=== PATIENT | male | born 1945 | race Caucasian/White ===

== ENCOUNTER 2020-06-21 16:07 | Inpatient (IN) | payer MEDICARE, MEDICAID ==
[~2020-06-21] VITALS: Ht 170.2 cm; Wt 103.6 kg
[~2020-06-21 16:07] MED LIST: ACLI400A3 INH; ALBU8.5H8 INH; AMIT25TA PO; ATRO2DRO3 SL; AZIT500T10 PO; CEFD300C37 PO; FLUT1DIS3 INH; GABA400C PO; GLYB5TAB3 PO; INSU100I28 SQ-INSULIN; INSU100V8 SQ; IPRA3AMP30 NPPB; IPRA4AER INH; LORA-446 PO; METF10002 PO; MORP20CA18 PO; NICO-587 TD; PANT40TA3 PO; PRED10TA PO
--- NOTE | 2020-06-21 16:25 | NUR ---
PT FROM [facility] WITH OXYGEN SATURATION 65 PERCENT ON CONCENTRATOR BUT UP TO 100 PERCENT WHEN SWITCHED TO OTHER OXYGEN SOURCE. PT STATES HE DOES HAVE A COUGH WORSE THAN NORMAL AND SOME CP.
[2020-06-21] MEDS ORDERED: SODIUM CHLORIDE FLUSH 10ML SYR IVF ONE (17:30)
[2020-06-21 18:59] LABS: HCT (SEDRATE) 31.9 % (39.2-51.8)
[2020-06-21 19:04] LABS: CHLORIDE 101 mmol/L (98-107)
[2020-06-21 19:08] LABS: BASOPHILS % (AUTO) 1 % (0-1); EOSINOPHILS % (AUTO) 0 % (1-7); LYMPHOCYTES % (AUTO) 10 % (22-44); MEAN CORPUSCULAR HEMOGLOBIN 26.5 pg (27.5-34.5); MEAN CORPUSCULAR HGB CONC 31.9 g/dL (33.2-36.2); MEAN PLATELET VOLUME 8.2 fL (7.4-10.4); MONOCYTES % (AUTO) 6 % (2-9); NEUTROPHILS % (AUTO) 82 % (42-75); PLATELET COUNT 383 x10^3/uL (130-400); RED BLOOD COUNT 3.74 x10^6/uL (4.38-5.82)
--- NOTE | 2020-06-21 19:11 | NUR ---
REPORT TO JOHN DUMONT
[2020-06-21 19:13] LABS: ALANINE AMINOTRANSFERASE 18 U/L (12-78); ALBUMIN 2.8 g/dL (3.4-5.0); ALKALINE PHOSPHATASE 129 U/L (45-117); ANION GAP 4 mmol/L (5-15); BILIRUBIN,TOTAL 0.4 mg/dL (0.2-1.0); CALCIUM 9.1 mg/dL (8.5-10.1); TOTAL PROTEIN 7.3 g/dL (6.4-8.2)
[2020-06-21 19:33] LABS: MD SCAN
[2020-06-21] MEDS ORDERED: FILTER 0.22 MICRON IV PRN (20:00)
[2020-06-21] MEDS ORDERED: ASPIRIN 81 MG TABLET CHEW PO ONE (20:00)
[2020-06-21] MEDS ORDERED: AMIODARONE 450 MG in DEXTROSE 5% 241 ML IV PRN (20:00)
[2020-06-21] MEDS ORDERED: AMIODARONE 150 MG in DEXTROSE 5% 100 ML IV ONE (20:00)
--- NOTE | 2020-06-21 20:06 | NUR ---
PT TO CT SCAN
[2020-06-21] MEDS ORDERED: ASPIRIN 81 MG TABLET CHEW ONE (20:21)
[2020-06-21] MEDS ORDERED: HEPARIN 25,000 UNITS/250ML PMX 250 ML IV PRN (20:30)
[2020-06-21] MEDS ORDERED: HEPARIN 5,000 UNITS/ML, 1ML IV ONE (20:30)
[2020-06-21] MEDS ORDERED: HEPARIN 5,000 UNITS/ML, 1ML IV PRN (20:30)
[2020-06-21 20:34] LABS: MICROSCOPIC AUTO
[2020-06-21] MEDS ORDERED: HEPARIN 5,000 UNITS/ML, 1ML ONE (21:04)
[2020-06-21] MEDS ORDERED: HEPARIN 25,000 UNITS/250ML PMX 250 ML ONE (21:05)
--- NOTE | 2020-06-21 21:23 | NUR ---
THIS RN AT BEDSIDE FOR HEPARIN VERIFICATION.
[2020-06-21] MEDS ORDERED: NITROGLYCERIN 0.4 MG BOTTLE (25 TABS) SL PRN (21:30)
[2020-06-21] MEDS ORDERED: morphine SULFATE 10 MG/ML, 1ML IV PRN (21:30)
[2020-06-21] MEDS ORDERED: ALBUTEROL HFA 90 MCG/SPRAY INH PRN (21:30)
[2020-06-21] MEDS ORDERED: ACETAMINOPHEN 325 MG TABLET PO PRN (21:30)
[2020-06-21] MEDS ORDERED: LABETALOL 5MG/ML, 20ML IVPush PRN (21:30)
[2020-06-21] MEDS ORDERED: ALBUTEROL-IPRATROPIUM MDI INH INH PRN (21:30)
[2020-06-21] MEDS ORDERED: DOCUSATE 100 MG CAPSULE PO PRN (21:30)
--- NOTE | 2020-06-21 21:34 | NUR ---
PT STARTED ON HEPARIN DRIP, AND AMNIO DRIP. PT STATES FEELING OK, NO ACUTE ISSUES AT THIS TIME. RESP EVEN/UNLABORED, ON ALL MONITORS, HOSPITALIST AT BEDSIDE
--- NOTE | 2020-06-21 22:09 | NUR ---
PT RESTING IN [place], STATES NO NEEDS AT THIS TIME, GIVEN WATER PER REQUEST
[2020-06-21 22:29] LABS: CHOL/HDL RATIO 5.5; LDL/HDL RATIO 3.9 (0.5-3.0)
--- NOTE | 2020-06-21 22:43 | NUR ---
PT RN: CALLED DR STEARNS. PROVIDER WANTS PT ON A NON-COVID FLOOR WITH A MONITOR. TELE OKAYED BY PROVIDER.
--- NOTE | 2020-06-21 22:53 | NUR ---
REPORT GIVEN TO ROSANA DUMONT.
[2020-06-22 00:16] VITALS: BP 122/67
[2020-06-22 03:55] LABS: ANION GAP 2 mmol/L (5-15); BASOPHILS % (AUTO) 1 % (0-1); CALCIUM 8.9 mg/dL (8.5-10.1); CHLORIDE 101 mmol/L (98-107); CREATININE 0.71 mg/dL (0.7-1.3); EOSINOPHILS % (AUTO) 1 % (1-7); LYMPHOCYTES % (AUTO) 14 % (22-44); MEAN CORPUSCULAR HEMOGLOBIN 26.2 pg (27.5-34.5); MEAN CORPUSCULAR HGB CONC 31.3 g/dL (33.2-36.2); MEAN PLATELET VOLUME 8.3 fL (7.4-10.4); MONOCYTES % (AUTO) 8 % (2-9); NEUTROPHILS % (AUTO) 75 % (42-75); PLATELET COUNT 362 x10^3/uL (130-400); RED BLOOD COUNT 3.77 x10^6/uL (4.38-5.82); RED CELL DISTRIBUTION WIDTH 15.9 % (9.4-14.8)
[2020-06-22 04:07] LABS: MD NO
[2020-06-22] MEDS: HEPARIN 5,000 UNITS/ML, 1ML IV PRN (05:14)
[2020-06-22] MEDS ORDERED: ASPIRIN 325 MG TABLET EC PO SCH (06:00)
[2020-06-22] MEDS: INSULIN LISPRO 100 UNITS/ML, PEN SQ-INSULIN SCH ×4 (07:00→20:55)
[2020-06-22 07:12] VITALS: BP 135/80
[2020-06-22] MEDS: AMIODARONE 450 MG in DEXTROSE 5% 241 ML IV PRN ×2 (07:20→21:49)
[2020-06-22] MEDS: SODIUM CHLORIDE FLUSH 10ML SYR IVF SCH ×2 (09:00→20:36)
[2020-06-22] MEDS ORDERED: SODIUM CHLORIDE 0.9% 1,000 ML IV SCH (09:30)
[2020-06-22] MEDS: PANTOPRAZOLE 40MG TABLET PO SCH (09:56)
[2020-06-22] MEDS: AMITRIPTYLINE 25 MG TABLET PO SCH ×2 (09:56→20:35)
[2020-06-22] MEDS: GABAPENTIN 400 MG CAPSULE PO SCH ×4 (09:56→20:42)
[2020-06-22] MEDS ORDERED: FENTANYL PF 100 MCG/2ML ONE (11:57)
[2020-06-22] MEDS ORDERED: LIDOCAINE-MPF 1%, 5ML ONE (11:57)
[2020-06-22] MEDS ORDERED: VERAPAMIL 2.5 MG/ML, 2ML ONE (11:57)
[2020-06-22] MEDS ORDERED: BIVALIRUDIN 250 MG ONE (11:57)
[2020-06-22] MEDS ORDERED: TICAGRELOR 90 MG TABLET ONE (11:57)
[2020-06-22] MEDS ORDERED: MIDAZOLAM 1 MG/ML, 5ML ONE (11:58)
[2020-06-22] MEDS ORDERED: HEPARIN 1,000 UNITS/ML, 10ML ONE (11:58)
[2020-06-22 15:49] VITALS: BP 123/57
[2020-06-22] MEDS: FLUTICASONE/VILANTEROL 200-25MCG/INH INH SCH (17:41)
[2020-06-22] MEDS ORDERED: OMNIPAQUE 350 MG/ML, 100ML BOTTLE ONE (20:00)
[2020-06-22 20:30] VITALS: BP 112/67
[2020-06-22] MEDS: ATORVASTATIN 80 MG TABLET PO SCH ×2 (20:34→20:41)
[2020-06-23] MEDS: HEPARIN 25,000 UNITS/250ML PMX 250 ML IV PRN ×2 (00:21→18:07)
[2020-06-23 01:46] VITALS: BP 109/68
[2020-06-23] MEDS: HEPARIN 5,000 UNITS/ML, 1ML IV PRN ×2 (01:46→10:14)
[2020-06-23 05:55] LABS: BASOPHILS % (AUTO) 1 % (0-1); EOSINOPHILS % (AUTO) 5 % (1-7); LYMPHOCYTES % (AUTO) 15 % (22-44); MEAN CORPUSCULAR HEMOGLOBIN 26.4 pg (27.5-34.5); MEAN CORPUSCULAR HGB CONC 31.6 g/dL (33.2-36.2); MEAN PLATELET VOLUME 8.6 fL (7.4-10.4); MONOCYTES % (AUTO) 8 % (2-9); NEUTROPHILS % (AUTO) 72 % (42-75); PLATELET COUNT 308 x10^3/uL (130-400); RED BLOOD COUNT 3.48 x10^6/uL (4.38-5.82)
[2020-06-23 06:06] LABS: ALBUMIN 2.4 g/dL (3.4-5.0); ANION GAP 5 mmol/L (5-15); CALCIUM 8.4 mg/dL (8.5-10.1); CHLORIDE 102 mmol/L (98-107)
[2020-06-23 06:10] LABS: ALANINE AMINOTRANSFERASE 20 U/L (12-78); ALKALINE PHOSPHATASE 105 U/L (45-117); BILIRUBIN,TOTAL 0.5 mg/dL (0.2-1.0); CREATININE 0.78 mg/dL (0.7-1.3); TOTAL PROTEIN 6.4 g/dL (6.4-8.2)
[2020-06-23 06:14] LABS: MD NO
[2020-06-23 06:41] VITALS: BP 121/70
[2020-06-23] MEDS ORDERED: MAGNESIUM SULFATE 1 GM in SODIUM CHLORIDE 0.9% 50 ML IV ONE (07:30)
[2020-06-23] MEDS: ASPIRIN 81 MG TABLET EC PO SCH (08:49)
[2020-06-23] MEDS: AMITRIPTYLINE 25 MG TABLET PO SCH ×2 (08:49→20:57)
[2020-06-23] MEDS: INSULIN LISPRO 100 UNITS/ML, PEN SQ-INSULIN SCH ×4 (08:49→21:42)
[2020-06-23] MEDS: PANTOPRAZOLE 40MG TABLET PO SCH (08:49)
[2020-06-23] MEDS: FLUTICASONE/VILANTEROL 200-25MCG/INH INH SCH (08:50)
[2020-06-23] MEDS: SODIUM CHLORIDE FLUSH 10ML SYR IVF SCH ×2 (08:50→20:58)
[2020-06-23] MEDS: GABAPENTIN 400 MG CAPSULE PO SCH ×3 (08:50→20:57)
[2020-06-23] MEDS ORDERED: FUROSEMIDE 40 MG/4 ML IV ONE (10:30)
[2020-06-23] MEDS: AMIODARONE 200 MG TABLET PO SCH ×2 (11:32→20:56)
[2020-06-23] MEDS: PIPERACILLIN/TAZO/PMX 3.375GM 50 ML IV SCH ×2 (12:23→20:56)
[2020-06-23 12:49] VITALS: BP 106/56
[2020-06-23 19:48] VITALS: BP 100/63
[2020-06-23] MEDS: ATORVASTATIN 80 MG TABLET PO SCH (20:57)
[2020-06-24 00:06] VITALS: BP 120/71
[2020-06-24] MEDS: ASPIRIN 81 MG TABLET EC PO SCH (05:28)
[2020-06-24] MEDS: PIPERACILLIN/TAZO/PMX 3.375GM 50 ML IV SCH ×3 (05:28→21:06)
[2020-06-24 05:49] LABS: BASOPHILS % (AUTO) 0 % (0-1); EOSINOPHILS % (AUTO) 4 % (1-7); LYMPHOCYTES % (AUTO) 16 % (22-44); MEAN CORPUSCULAR HEMOGLOBIN 26.4 pg (27.5-34.5); MEAN CORPUSCULAR HGB CONC 31.5 g/dL (33.2-36.2); MEAN PLATELET VOLUME 8.3 fL (7.4-10.4); MONOCYTES % (AUTO) 8 % (2-9); NEUTROPHILS % (AUTO) 72 % (42-75); PLATELET COUNT 318 x10^3/uL (130-400); RED BLOOD COUNT 3.54 x10^6/uL (4.38-5.82); RED CELL DISTRIBUTION WIDTH 15.8 % (9.4-14.8)
[2020-06-24 06:00] LABS: ALBUMIN 2.5 g/dL (3.4-5.0); ANION GAP 2 mmol/L (5-15); CALCIUM 8.8 mg/dL (8.5-10.1); CHLORIDE 102 mmol/L (98-107)
[2020-06-24 06:05] LABS: ALANINE AMINOTRANSFERASE 16 U/L (12-78); ALKALINE PHOSPHATASE 103 U/L (45-117); BILIRUBIN,TOTAL 0.2 mg/dL (0.2-1.0); CREATININE 0.85 mg/dL (0.7-1.3); TOTAL PROTEIN 6.7 g/dL (6.4-8.2)
[2020-06-24 06:20] LABS: MD NO
[2020-06-24 06:48] VITALS: BP 107/67
[2020-06-24] MEDS: INSULIN LISPRO 100 UNITS/ML, PEN SQ-INSULIN SCH ×4 (09:22→21:09)
[2020-06-24] MEDS: PANTOPRAZOLE 40MG TABLET PO SCH (09:22)
[2020-06-24] MEDS: GABAPENTIN 400 MG CAPSULE PO SCH ×3 (09:24→21:09)
[2020-06-24] MEDS: AMITRIPTYLINE 25 MG TABLET PO SCH ×2 (09:25→21:10)
[2020-06-24] MEDS: SODIUM CHLORIDE FLUSH 10ML SYR IVF SCH ×2 (09:27→21:10)
[2020-06-24] MEDS: FLUTICASONE/VILANTEROL 200-25MCG/INH INH SCH (09:27)
[2020-06-24] MEDS ORDERED: POTASSIUM CHLORIDE 20 MEQ TAB.ER.PRT PO ONE (09:30)
[2020-06-24] MEDS ORDERED: FUROSEMIDE 40 MG/4 ML IV ONE (09:30)
[2020-06-24] MEDS: AMIODARONE 200 MG TABLET PO SCH ×2 (09:37→21:09)
[2020-06-24 12:30] VITALS: BP 111/65
[2020-06-24] MEDS: HEPARIN 25,000 UNITS/250ML PMX 250 ML IV PRN (16:06)
[2020-06-24] MEDS: ATORVASTATIN 80 MG TABLET PO SCH (21:09)
[2020-06-24 21:12] VITALS: BP 133/69
[2020-06-25 02:00] VITALS: BP 111/65
[2020-06-25] MEDS: PIPERACILLIN/TAZO/PMX 3.375GM 50 ML IV SCH ×2 (04:29→12:27)
[2020-06-25] MEDS: ASPIRIN 81 MG TABLET EC PO SCH (05:29)
[2020-06-25] MEDS: INSULIN LISPRO 100 UNITS/ML, PEN SQ-INSULIN SCH ×2 (08:31→12:26)
[2020-06-25 08:45] VITALS: BP 115/52
[2020-06-25] MEDS: AMIODARONE 200 MG TABLET PO SCH (09:09)
[2020-06-25] MEDS: AMITRIPTYLINE 25 MG TABLET PO SCH (09:10)
[2020-06-25] MEDS: FLUTICASONE/VILANTEROL 200-25MCG/INH INH SCH (09:10)
[2020-06-25] MEDS: PANTOPRAZOLE 40MG TABLET PO SCH (09:10)
[2020-06-25] MEDS: GABAPENTIN 400 MG CAPSULE PO SCH (09:10)
[2020-06-25] MEDS: SODIUM CHLORIDE FLUSH 10ML SYR IVF SCH (09:10)
[2020-06-25] MEDS ORDERED: CLOPIDOGREL 75 MG TABLET PO SCH (11:00)
[2020-06-25] MEDS ORDERED: DOXY100T PO (13:28)
[2020-06-25] MEDS ORDERED: AMIO200T42 PO (13:28)
[2020-06-25] MEDS ORDERED: ASPI81TA45 PO (13:28)
[2020-06-25] MEDS ORDERED: CEFD300C37 PO (13:28)
[2020-06-25] MEDS ORDERED: DOXYCYCLINE 100MG TABLET PO SCH (21:00)
== END 2020-06-25 14:20 | disposition hospice, inpatient (51) | DRG 280 ==
LOC: ED 17:51 → 5SO 06-22 00:05
PROVIDERS: ADMIT Family Medicine; ATTEND Internal Medicine
PROC: 4A023N7 Measurement of Cardiac Sampling and Pressure, Left Heart, Percutaneous Approach (ICD-10-PCS; principal; 2020-06-22)
PROC: B2111ZZ Fluoroscopy of Multiple Coronary Arteries using Low Osmolar Contrast (ICD-10-PCS; 2020-06-22)
DX: I21.3 ST elevation (STEMI) myocardial infarction of unspecified site (principal); I50.43 Acute on chronic combined systolic (congestive) and diastolic (congestive) heart failure; I47.2 Ventricular tachycardia; L97.419 Non-pressure chronic ulcer of right heel and midfoot with unspecified severity; E11.621 Type 2 diabetes mellitus with foot ulcer; I11.0 Hypertensive heart disease with heart failure; I25.10 Atherosclerotic heart disease of native coronary artery without angina pectoris; F03.90 Unspecified dementia, unspecified severity, without behavioral disturbance, psychotic disturbance, mood disturbance, and anxiety; E11.51 Type 2 diabetes mellitus with diabetic peripheral angiopathy without gangrene; J44.9 Chronic obstructive pulmonary disease, unspecified; Z51.5 Encounter for palliative care; Z66 Do not resuscitate; Z82.49 Family history of ischemic heart disease and other diseases of the circulatory system; I69.30 Unspecified sequelae of cerebral infarction; Z82.5 Family history of asthma and other chronic lower respiratory diseases; Z87.891 Personal history of nicotine dependence; Z99.81 Dependence on supplemental oxygen; Z88.0 Allergy status to penicillin
CPT/HCPCS: 36415; 71045; 71275; 80048; 80053; 80061; 81001; 82962; 83605; 83735; 83880; 84145; 84484; 85025; 85520; 85651; 86140; 87040; 87635; 92920; 93005; 93306; 93458; 96374; 96375; 99156; 99291; C1769; C1894; G0378; J0583; J1644; J1940; J2250; J2543; J3010; J3475; J7060; Q9967; C1887; J0282; J1815; J7030